=== PATIENT | male | born 1975 | race African-American/Black ===

== ENCOUNTER 2022-01-10 09:47 | Emergency (ER) | payer SELFPAY ==
[~2022-01-10] VITALS: Ht 175.3 cm; Wt 70.3 kg
--- NOTE | 2022-01-10 09:47 | NUR ---
PT MERRICK COLLIER, TO ER LOBBY TO BE TRIAGED.
--- NOTE | 2022-01-10 10:05 | NUR ---
PT AMBULATED TO BED 08.
--- NOTE | 2022-01-10 10:21 | NUR ---
46 Y/O M BIBA for c/o dog bite today. Left index finger noted with an open wound. No s/sx of active bleeding noted. Pt is AOX4, able to make needs known. Pt states his last TdaP is unknown at this time. pmhx: none nka
[2022-01-10 10:28] VITALS: BP 116/70
[2022-01-10] MEDS ORDERED: LIDOCAINE 2% 1000 MG/50 ML VIAL INJ ONE (10:45)
[2022-01-10] MEDS ORDERED: LIDOCAINE MPF 2% 100 MG/5 ML VIAL INJ ONE (11:10)
--- NOTE | 2022-01-10 11:13 | NUR ---
Animal bite report has been faxed
[2022-01-10] MEDS ORDERED: BACITRACIN OINT 500 UNITS/GM PKT TP ONE (12:15)
[2022-01-10] MEDS ORDERED: SILVER NITRATE APPLICATOR 1 EA SWAB TP ONE ×2 (12:19→12:20)
--- NOTE | 2022-01-10 12:20 | NUR ---
Dr antoine at bedside suturing wound, pt tolerating procedure well.
[2022-01-10] MEDS ORDERED: AMOX1TAB8 PO (12:28)
[2022-01-10] MEDS ORDERED: IBUP-2213 PO (12:29)
--- NOTE | 2022-01-10 12:39 | NUR ---
wound to L hand digit dressed with non adherent x 1. + cms
--- NOTE | 2022-01-10 12:48 | NUR ---
Patient discharged with v/s stable. Written and verbal after care instructions given and explained. Patient verbalized understanding. Ambulatory with steady gait. All questions addressed prior to discharge. Advised to follow up with PMD.
== END 2022-01-10 12:48 | disposition home or self-care (01) ==
LOC: MED 09:47
DX: S61.311A Laceration without foreign body of left index finger with damage to nail, initial encounter (principal); Z79.1 Long term (current) use of non-steroidal anti-inflammatories (NSAID); Z79.2 Long term (current) use of antibiotics; W54.0XXA Bitten by dog, initial encounter; Y93.89 Activity, other specified; Y92.89 Other specified places as the place of occurrence of the external cause; Y99.8 Other external cause status
CPT/HCPCS: 11760; 99285; J2001; 99283

== ENCOUNTER 2022-01-14 12:27 | Emergency (ER) | payer SELFPAY ==
[~2022-01-14] VITALS: Ht 175.3 cm; Wt 63.0 kg
[~2022-01-14 12:27] MED LIST: AMOX1TAB8 PO; IBUP-2213 PO
[2022-01-14 12:35] VITALS: BP 117/77
[2022-01-14] MEDS ORDERED: BACITRACIN OINT 500 UNITS/GM PKT TP ONE (12:55)
== END 2022-01-14 13:16 | disposition home or self-care (01) ==
LOC: MED 12:27
DX: S61.211D Laceration without foreign body of left index finger without damage to nail, subsequent encounter (principal); W54.0XXD Bitten by dog, subsequent encounter
CPT/HCPCS: 99282